=== PATIENT | male | born 1985 | race Caucasian/White ===

== ENCOUNTER 2023-09-17 20:25 | Emergency (ER) | payer MEDICAID ==
[~2023-09-17] VITALS: Ht 170.2 cm; Wt 85.0 kg
[2023-09-17 20:27] VITALS: O2SAT 97
[2023-09-17 21:42] LABS: BASOPHILS % 0.4 % (0.0-2.0); EOSINOPHILS % 0.4 % (0.0-5.0); HEMATOCRIT. 33.2 % (42.0-52.0); HEMOGLOBIN. 10.9 g/dL (14.0-18.0); LYMPHOCYTES % 14.8 % (20.0-50.0); MEAN CORPUSCULAR HEMOGLOBIN 27.3 pg (28.0-32.0); MEAN CORPUSCULAR HGB CONC 32.7 g/dL (31.0-37.0); MEAN CORPUSCULAR VOLUME 83.4 fL (80.0-94.0); NEUTROPHILS % 76.4 % (40.0-76.0); PLATELET 72 x1000/uL (130-400); RED BLOOD CELL COUNT 3.98 mill/uL (4.7-6.1); RED CELL DISTRIBUTION WIDTH 19.7 % (11.6-14.6); WHITE BLOOD COUNT 4.2 x1000/uL (4.5-11.0)
[2023-09-17 21:51] LABS: INR 1.2; PROTHROMBIN TIME 12.6 sec (9.6-11.0)
[2023-09-17 21:55] LABS: ALANINE AMINOTRANSFERASE 50 IU/L (10-49); ALBUMIN 4.2 g/dL (3.2-4.8); ASPARTATE AMINOTRANSFERASE 113 IU/L (<34); BILIRUBIN TOTAL 2.5 mg/dL (0.1-1.0); CALCIUM 8.9 mg/dL (8.7-10.4); CARBON DIOXIDE 24 mEq/L (21-32); CHLORIDE 105 mEq/L (98-107); CREATININE 0.7 mg/dL (0.6-1.3); ETHANOL BLOOD < 10 mg/dL (<10); GLUCOSE 94 mg/dL (70-105); POTASSIUM 3.5 mEq/L (3.5-5.1); PROTEIN TOTAL 7.6 g/dL (6.0-8.3); SODIUM 135 mEq/L (136-145); TROPONIN I HIGH SENSITIVITY < 4 ng/L (3.0-53); UREA NITROGEN BLOOD 9 mg/dL (9-23)
[2023-09-17 23:52] LABS: TROPONIN I HIGH SENSITIVITY < 4 ng/L (3.0-53)
[2023-09-18] MEDS ORDERED: MAGNESIUM/ALUMINUM HYDROXIDE/SIMETHICONE 30ML UDC PO ONE (01:45)
[2023-09-18] MEDS ORDERED: ONDANSETRON HCL 4MG/2ML INJ IV ONE (01:45)
[2023-09-18] MEDS ORDERED: PANTOPRAZOLE SODIUM 40 MG/VIAL IV ONE (01:45)
[2023-09-18 02:02] LABS: CLARITY URINE CLEAR (CLEAR); COLOR URINE ORANGE (YELLOW); GLUCOSE URINE NEGATIVE (NEGATIVE); KETONES URINE TRACE (NEGATIVE); LEUKOCYTE ESTERASE URINE 1+ (NEGATIVE); NITRITE URINE POSITIVE (NEGATIVE); OCCULT BLOOD URINE 1+ (NEGATIVE); PROTEIN URINE 3+ (NEGATIVE); SPECIFIC GRAVITY URINE 1.038 (1.005-1.030)
[2023-09-18] MEDS: MISCELLANEOUS MEDICATION 1 EA PO ONE (02:34)
[2023-09-18] MEDS: PANTOPRAZOLE SODIUM 40 MG/VIAL IV NR (02:52)
[2023-09-18] MEDS: VISCOUS LIDOCAINE 2% 15 ML UDC PO NR (02:52)
[2023-09-18] MEDS: MAGNESIUM/ALUMINUM HYDROXIDE/SIMETHICONE 30ML UDC PO NR (02:52)
[2023-09-18] MEDS: ONDANSETRON HCL 4MG/2ML INJ IV NR (02:52)
[2023-09-18] MEDS: SODIUM CHLORIDE 0.9% 1,000 ML IV ONE (03:02)
[2023-09-18] MEDS: LORAZEPAM 1MG TABLET PO NR (03:10)
[2023-09-18] MEDS ORDERED: THIA250T3 MT (03:33)
[2023-09-18] MEDS ORDERED: PROT40 MT (03:33)
[2023-09-18] MEDS ORDERED: ONDA4TAB50 MT (03:33)
[2023-09-18] MEDS: AZITHROMYCIN 500 MG TABLET PO ONE (03:45)
[2023-09-18] MEDS: CEFTRIAXONE SODIUM 500MG VIAL IM ONE (05:11)
[2023-09-18 05:37] VITALS: BP 122/77; PULSE 75; RESP 18; TEMP 98.6
[2023-09-18 06:15] LABS: SQUAMOUS EPITHELIAL CELL URINE FEW /lpf (RARE/1+)
[2023-09-18 06:16] LABS: RBC URINE 0-2 /hpf (0-2)
[2023-09-18 06:18] LABS: BACTERIA URINE 1+
== END 2023-09-18 05:46 | disposition home or self-care (01) ==
LOC: ER 20:25
DX: F10.20 Alcohol dependence, uncomplicated (principal); K29.70 Gastritis, unspecified, without bleeding; K21.9 Gastro-esophageal reflux disease without esophagitis; Y90.9 Presence of alcohol in blood, level not specified
CPT/HCPCS: 80053; 80320; 83690; 85025; 85610; 84484; 36415; 71045; 99285; 81003; 87086; 87186; 87077; 76700; 96361; 96372; 96374; 96375; J0696; J2405; C9113; Z7610 ×3; G0480

== ENCOUNTER 2023-10-09 16:36 | Emergency (ER) | payer MEDICAID ==
[~2023-10-09] VITALS: Ht 160 cm; Wt 64.0 kg
[~2023-10-09 16:36] MED LIST: ONDA4TAB50 MT; PROT40 MT; THIA250T3 MT
[2023-10-09 16:37] VITALS: O2SAT 100
[2023-10-09] MEDS: KETOROLAC 60MG/2ML VIAL IM ONE (18:18)
[2023-10-09 19:10] VITALS: BP 122/70; PULSE 80; RESP 16; TEMP 98.4
[2023-10-10] MEDS ORDERED: IOHEXOL-300 100 ML BOTTLE ONE (02:30)
[2023-10-10] MEDS ORDERED: IBUP-2029 MT (10:56)
== END 2023-10-09 21:33 | disposition home or self-care (01) ==
LOC: ER 17:34
DX: S62.521A Displaced fracture of distal phalanx of right thumb, initial encounter for closed fracture (principal); K21.9 Gastro-esophageal reflux disease without esophagitis; F10.20 Alcohol dependence, uncomplicated; Y90.9 Presence of alcohol in blood, level not specified; Y08.89XA Assault by other specified means, initial encounter; Y93.89 Activity, other specified; Y92.89 Other specified places as the place of occurrence of the external cause; Y99.8 Other external cause status
CPT/HCPCS: 71045; 73130; 29130; 96372; 99284; Q9967; J1885; Z7610

== ENCOUNTER 2023-10-29 20:59 | Emergency (ER) | payer MEDICAID ==
[~2023-10-29] VITALS: Ht 160 cm; Wt 135.0 kg
[~2023-10-29 20:59] MED LIST changes: +IBUP-2029 MT
[2023-10-29 21:14] VITALS: O2SAT 98
[2023-10-29] MEDS ORDERED: NAPR-1176 MT (22:27)
[2023-10-29] MEDS ORDERED: LIDO700A15 TP (22:27)
[2023-10-29] MEDS: KETOROLAC 15MG/ML VIAL IM ONE (22:35)
[2023-10-29] MEDS: ONDANSETRON 4MG ODT PO ONE (23:18)
[2023-10-30 02:15] VITALS: BP 110/69; PULSE 86; RESP 14; TEMP 98.6
== END 2023-10-30 02:16 | disposition home or self-care (01) ==
LOC: ER 20:59
DX: R07.81 Pleurodynia (principal); F10.20 Alcohol dependence, uncomplicated; Z79.899 Other long term (current) drug therapy
CPT/HCPCS: 99283; 71045; 96372; Q0162; J1885